=== PATIENT | male | born 1965 | race Caucasian/White ===

== ENCOUNTER → 2017-06-03 | Outpatient (CLI) | payer MEDICARE ==
[~2017-06-03] MED LIST: LOSARTAN POTASS1 TAB PO
== END | disposition home or self-care (01) ==
LOC: CARD 14:57
DX: I08.1 Rheumatic disorders of both mitral and tricuspid valves (principal)

== ENCOUNTER → 2017-08-01 | Outpatient (CLI) | payer MEDICARE | END | disposition home or self-care (01) | LOC: CT 13:52 | DX: M54.5 Low back pain (principal); R30.0 Dysuria ==

== ENCOUNTER → 2017-12-02 | Outpatient (CLI) | payer MEDICARE ==
[2017-12-02 10:05] LABS: HEMATOCRIT 46.3 % (42.0-52.0); HEMOGLOBIN 16.1 g/dl (14.0-18.0); MEAN CELL VOLUME 87.4 fl (80.0-94.0); MEAN CORPUSCULAR HGB 30.4 pg (27.0-31.0); MEAN CORPUSCULAR HGB CONC 34.8 g/dl (33.0-37.0); MEAN PLATELET VOLUME 10.6 fl (9.6-12.3); RED BLOOD COUNT 5.3 10*6/uL (4.50-5.90); RED CELL DISTRI WIDTH 12.6 % (0-14.5); WHITE BLOOD COUNT 12.2 10*3/uL (4.8-10.8)
[2017-12-02 10:44] LABS: ALBUMIN 3.9 gm/dl (3.1-4.5); ALKALINE PHOSPHATASE 53 U/L (45-117); BUN 27 mg/dl (7-24); CHLORIDE 102 mmol/L (98-107); CHOLESTEROL 156 mg/dL (<200); CREATININE 1.19 mg/dL (0.70-1.30); HDL CHOLESTEROL 56 mg/dl (40-60); LDL CHOLESTEROL 77 mg/dL (9-159); POTASSIUM 3.3 mmol/L (3.5-5.1); SGOT/AST 13 IU/L (3-35); SGPT/ALT 33 U/L (12-78); SODIUM 139 mmol/L (136-145); TOTAL PROTEIN 7.1 gm/dL (6.4-8.2); TRIGLYCERIDES 115 mg/dl (<150); VLDL CHOLESTEROL 23 mg/dL (6-40)
== END | disposition home or self-care (01) ==
LOC: LAB 09:47
PROVIDERS: Family Medicine
DX: Z12.5 Encounter for screening for malignant neoplasm of prostate (principal); E78.00 Pure hypercholesterolemia, unspecified; R53.83 Other fatigue; E55.9 Vitamin D deficiency, unspecified; M19.91 Primary osteoarthritis, unspecified site

== ENCOUNTER → 2018-05-07 | Outpatient (CLI) | payer MEDICARE ==
[2018-05-07 10:14] LABS: HEMATOCRIT 49.5 % (42.0-52.0); HEMOGLOBIN 17.1 g/dl (14.0-18.0); MEAN CELL VOLUME 88.6 fl (80.0-94.0); MEAN CORPUSCULAR HGB 30.6 pg (27.0-31.0); MEAN CORPUSCULAR HGB CONC 34.5 g/dl (33.0-37.0); MEAN PLATELET VOLUME 10.1 fl (9.6-12.3); RED BLOOD COUNT 5.59 10*6/uL (4.50-5.90); RED CELL DISTRI WIDTH 12.3 % (0-14.5); WHITE BLOOD COUNT 7.1 10*3/uL (4.8-10.8)
[2018-05-07 10:47] LABS: ALKALINE PHOSPHATASE 55 U/L (45-117); BUN 16 mg/dl (7-24); CHLORIDE 108 mmol/L (98-107); CHOLESTEROL 177 mg/dL (<200); CREATININE 1.22 mg/dL (0.70-1.30); HDL CHOLESTEROL 39 mg/dl (40-60); LDL CHOLESTEROL 103 mg/dL (9-159); POTASSIUM 4.5 mmol/L (3.5-5.1); SGOT/AST 21 IU/L (3-35); SGPT/ALT 30 U/L (12-78); SODIUM 142 mmol/L (136-145); TOTAL PROTEIN 7.7 gm/dL (6.4-8.2); TRIGLYCERIDES 173 mg/dl (<150); VLDL CHOLESTEROL 35 mg/dL (6-40)
== END | disposition home or self-care (01) ==
LOC: LAB 09:54
PROVIDERS: Family Medicine
DX: Z12.5 Encounter for screening for malignant neoplasm of prostate (principal); I10 Essential (primary) hypertension; E55.9 Vitamin D deficiency, unspecified; R42 Dizziness and giddiness

== ENCOUNTER 2018-12-22 07:13 | Emergency (ER) | payer MEDICARE ==
[~2018-12-22] VITALS: Ht 167.6 cm; Wt 83.9 kg
--- NOTE | ~2018-12-22 | EKG ---
[place], [place] ELECTROCARDIOGRAM REPORT NAME: LEVI YEN UNIT #: [id number] ROOM: DOCTOR: EPIPHANY DRAFT REPORT BIRTHDATE: [birth year] [facility] Test Date: 2018-12-22 Test Time: 07:50:32 Pat Name: LEVI YEN [facility] Gender: M Facilities Plant Engineer: Hilary Adam : [id number] Requested By: PAULINA LAWRENCE Order Number: [id number] Reading MD: Warner Keene MD Measurements Intervals [place] Rate: 78 P: 48 CO: 151 QRS: 30 QRSD: 92 T: 0 QT: 390 QTc: 445 Interpretive Statements Sinus rhythm Normal ECG Electronically Signed On 12-23-2018 14:46:39 PDT by Warner Keene MD CM:EKGRPT:ELECTROCARDIOGRAM REPORT [id number] PAULINA LAWRENCE MD EPIPHANY DRAFT REPORT PAULINA LAWRENCE MD
[2018-12-22 07:53] LABS: BASO # 0.1 10*3/uL (0.0-0.1); BASO % 0.9 % (0.0-1.0); EOS # 0.1 10*3/uL (0.0-0.4); EOS % 1.6 % (1.0-4.0); HEMATOCRIT 47.3 % (42.0-52.0); HEMOGLOBIN 16.7 g/dl (14.0-18.0); LYMPH # 2.8 10*3/uL (1.3-4.4); LYMPH % 36.9 % (27.0-41.0); MEAN CORPUSCULAR HGB 30.4 pg (27.0-31.0); MEAN CORPUSCULAR HGB CONC 35.3 g/dl (33.0-37.0); MEAN PLATELET VOLUME 10.2 fl (9.6-12.3); MONO # 0.6 10*3/uL (0.1-1.0); MONO % 8.5 % (3.0-9.0); NEUT # 3.9 10*3/uL (2.3-7.9); PLATELET COUNT AUTOMATED 233 10*3/uL (130-400); RED CELL DISTRI WIDTH 12.2 % (0-14.5); WHITE BLOOD COUNT 7.5 10*3/uL (4.8-10.8)
[2018-12-22 07:55] LABS: BILIRUBIN NEGATIVE (NEGATIVE); BLOOD NEGATIVE (NEGATIVE); CLARITY CLEAR (CLEAR); COLOR YELLOW (YELLOW); GLUCOSE NEGATIVE (NEGATIVE); KETONE NEGATIVE (NEGATIVE); LEUKO ESTERASE NEGATIVE (NEGATIVE); NITRITE NEGATIVE (NEGATIVE); PH 6.5 (5.0-9.0); UROBILINOGEN 0.2 E.U./dl (0.2-1.0)
[2018-12-22 08:09] LABS: ALBUMIN 4.2 gm/dl (3.1-4.5); ALKALINE PHOSPHATASE 66 U/L (45-117); BUN 13 mg/dl (7-24); CHLORIDE 104 mmol/L (98-107); CREATININE 1.02 mg/dL (0.70-1.30); LIPASE 163 U/L (73-393); POTASSIUM 2.9 mmol/L (3.5-5.1); SGOT/AST 20 IU/L (3-35); SGPT/ALT 32 U/L (12-78); SODIUM 140 mmol/L (136-145); TOTAL PROTEIN 7.5 gm/dL (6.4-8.2)
[2018-12-22 08:09] LABS: BACTERIA TRACE; EPITHELIAL CELLS 0-2; MUCOUS 2+; WBC 0-2 wbc/hpf (0-5)
[2018-12-22 08:10] LABS: TROPONIN I < 0.015 ng/ml (<0.045)
[2018-12-22] MEDS ORDERED: PRILOSEC20 M1 PO (09:11)
[2018-12-22] MEDS ORDERED: POTASSIUM CHLO20 ME3 PO (09:11)
[2018-12-22] MEDS ORDERED: ZOFRAN4 MG PO (09:11)
== END 2018-12-22 09:21 | disposition home or self-care (01) ==
LOC: ED 07:13
PROVIDERS: Emergency Medicine
DX: E87.6 Hypokalemia (principal); R10.13 Epigastric pain; R10.31 Right lower quadrant pain; R10.32 Left lower quadrant pain; R11.0 Nausea; R14.0 Abdominal distension (gaseous); R10.33 Periumbilical pain; Z79.899 Other long term (current) drug therapy

== ENCOUNTER → 2019-06-17 | Outpatient (CLI) | payer MEDICARE ==
[~2019-06-17] MED LIST changes: +POTASSIUM CHLO20 ME3 PO; +PRILOSEC20 M1 PO; +ZOFRAN4 MG PO
== END | disposition home or self-care (01) ==
LOC: US 08:55
DX: N20.0 Calculus of kidney (principal); N13.39 Other hydronephrosis

== ENCOUNTER → 2019-09-27 | Outpatient (CLI) | payer MEDICARE | END | disposition home or self-care (01) | LOC: RAD 07:56 | DX: K21.9 Gastro-esophageal reflux disease without esophagitis (principal); K20.9 Esophagitis, unspecified; R13.10 Dysphagia, unspecified ==

== ENCOUNTER → 2020-12-01 | Outpatient (CLI) | payer MEDICARE | END | disposition home or self-care (01) | LOC: D 13:11 | PROVIDERS: ATTEND Family Medicine | DX: K90.0 Celiac disease (principal) ==

== ENCOUNTER → 2021-04-03 | Outpatient (CLI) | payer MEDICARE | END | disposition home or self-care (01) | LOC: COVID19 16:56 | PROVIDERS: ATTEND Internal Medicine | DX: Z11.52 Encounter for screening for COVID-19 (principal) ==

== ENCOUNTER 2024-05-16 19:50 | Emergency (ER) | payer MEDICARE ==
[~2024-05-16] VITALS: Ht 165.1 cm; Wt 85.7 kg
[2024-05-16] MEDS ORDERED: CEPHALEXIN 500 MG CAP PO ONE (20:25)
[2024-05-16] MEDS ORDERED: Tdap Vaccine 0.5 ML SYR (Adult Vaccine) IM ONE ×2 (20:25→20:51)
[2024-05-16] MEDS ORDERED: DERMABOND 1 EA APPL T ONE (20:52)
[2024-05-16] MEDS ORDERED: CEPHALEXIN500 M1 PO (20:59)
== END 2024-05-16 21:05 | disposition home or self-care (01) ==
LOC: ED 19:50
DX: S61.217A Laceration without foreign body of left little finger without damage to nail, initial encounter (principal); Z88.8 Allergy status to other drugs, medicaments and biological substances; Z98.890 Other specified postprocedural states; W26.8XXA Contact with other sharp object(s), not elsewhere classified, initial encounter; Y93.89 Activity, other specified; Y92.89 Other specified places as the place of occurrence of the external cause; Y99.8 Other external cause status

== ENCOUNTER 2024-05-17 15:44 | Emergency (ER) | payer MEDICARE ==
[~2024-05-17] VITALS: Ht 165.1 cm; Wt 85.7 kg
[~2024-05-17 15:44] MED LIST changes: +CEPHALEXIN500 M1 PO
== END 2024-05-17 16:32 | disposition home or self-care (01) ==
LOC: ED 15:44
DX: S61.217D Laceration without foreign body of left little finger without damage to nail, subsequent encounter (principal); Z48.01 Encounter for change or removal of surgical wound dressing; Z88.8 Allergy status to other drugs, medicaments and biological substances; Z98.890 Other specified postprocedural states; W45.8XXD Other foreign body or object entering through skin, subsequent encounter

== ENCOUNTER 2024-11-09 10:12 | Emergency (ER) | payer MEDICARE ==
[~2024-11-09] VITALS: Ht 167.6 cm; Wt 83.9 kg
[2024-11-09] MEDS ORDERED: NITROGLYCERIN 1 IN PACKET T ONE (10:50)
[2024-11-09] MEDS ORDERED: ASPIRIN, CHEWABLE 81 MG TAB PO ONE (10:50)
[2024-11-09] MEDS ORDERED: Ondansetron Hydrochloride 4 MG/2 ML VIAL IV ONE (10:50)
[2024-11-09 11:01] LABS: BASO % 0.1 % (0.0-1.0); EOS % 0.1 % (1.0-4.0); HEMATOCRIT 46.5 % (42.0-52.0); MEAN CELL VOLUME 86.8 fl (80.0-94.0); MEAN CORPUSCULAR HGB 29.7 pg (27.0-31.0); MEAN CORPUSCULAR HGB CONC 34.2 g/dl (33.0-37.0); MEAN PLATELET VOLUME 10.4 fl (9.6-12.3); MONO # 1.1 10*3/uL (0.1-1.0); MONO % 10.7 % (3.0-9.0); NEUT # 7.6 10*3/uL (2.3-7.9); NEUT % 75.9 % (47.0-73.0); PLATELET COUNT AUTOMATED 255 10*3/uL (130-400); RED BLOOD COUNT 5.36 10*6/uL (4.50-5.90); RED CELL DISTRI WIDTH 12.5 % (0-14.5)
[2024-11-09 11:25] LABS: ALKALINE PHOSPHATASE 71 U/L (46-116); BUN 16 mg/dl (9-23); CHLORIDE 104 mmol/L (98-107); CPK 74 U/L (34-171); POTASSIUM 3.5 mmol/L (3.4-5.1); SGPT/ALT 14 U/L (5-49); TOTAL PROTEIN 7.1 gm/dL (6.0-8.0)
[2024-11-09] MEDS ORDERED: HYDROXYZINE HCL25 MG PO (13:51)
== END 2024-11-09 14:07 | disposition home or self-care (01) ==
LOC: ED 10:12
PROVIDERS: Emergency Medicine
DX: F41.9 Anxiety disorder, unspecified (principal); R07.89 Other chest pain; Z79.899 Other long term (current) drug therapy; Z88.8 Allergy status to other drugs, medicaments and biological substances; Z98.890 Other specified postprocedural states